=== PATIENT | female | born 1995 | race Caucasian/White ===

== ENCOUNTER 2019-04-19 16:24 | Emergency (ER) | payer SELFPAY ==
[2019-04-19] MEDS ORDERED: Acetaminophen TAB* 325 MG PO ONE (17:43)
--- NOTE | 2019-04-19 17:57 | ED ---
Respiratory - HPI Summary HPI Summary: 23 yr old female with the complaint of cough, URI congestion. Onset 4-5 days ago with runny nose and scratchy throat, and now deep coughing. She came today for two issues. She has coughing. The cough is heavy, and dry. She has nasal congestion. The patient had two day period that was a little early. No bleeding now. - History of Current Complaint Chief Complaint: UCGeneralIllness Stated Complaint: COUGH,LIGHT HEADED,CONGESTION Time Seen by Provider: 04/19/19 17:42 Pain Intensity: 0 - Allergy/Home Medications Allergies/Adverse Reactions: Allergies Allergy/AdvReac Type Severity Reaction Status Date / Time No Known Allergies Allergy Verified 04/19/19 17:40 Home Medications: Home Medications Cetirizine* [ZyrTEC 10 MG TAB*] 1 tab PO ONCE 04/19/19 [History Confirmed ] diphenhydrAMINE HCl [Benadryl Allergy] 1 tab PO ONCE 04/19/19 [History Confirmed 04/19/19] PMH/Surg Hx/FS Hx/Imm Hx - Surgical History Surgery Procedure, Year, and Place: 2017 Infectious Disease History: No Infectious Disease History: Denies: Traveled Outside the [place] in Last 30 Days - Family History Known Family History: Positive: None - Social History Alcohol Use: Occasionally Substance Use Type: Reports: None Smoking Status (MU): Heavy Every Day Tobacco Smoker Amount Used/How Often: 1/2 ppd Review of Systems Positive: Fatigue Positive: Cough All Other Systems Reviewed And Are Negative: Yes Physical Exam Triage Information Reviewed: Yes Vital Signs On Initial Exam: Initial Vitals Temp Pulse Resp BP Pulse Ox 100.6 F 113 14 117/70 96 04/19/19 17:31 04/19/19 17:31 04/19/19 17:31 04/19/19 17:31 04/19/19 17:31 Vital Signs Reviewed: Yes Appearance: Positive: Well-Appearing, No Pain Distress Skin: Positive: Warm, Skin Color Reflects Adequate Perfusion Head/Face: Positive: Normal Head/Face Inspection Eyes: Positive: EOMI, FARIHA ENT: Positive: Normal ENT inspection Neck: Positive: Nontender Respiratory/Lung Sounds: Positive: Clear to Auscultation, Breath Sounds Present Cardiovascular: Positive: RRR. Negative: Murmur Abdomen Description: Negative: Distended Musculoskeletal: Positive: Strength/ROM Intact Neurological: Positive: Sensory/Motor Intact, Alert, Oriented to Person Place, Time, CN Intact II-III Psychiatric: Positive: Normal Diagnostics - Vital Signs Vital Signs Temp Pulse Resp BP Pulse Ox 04/19/19 17:31 100.6 F 113 14 117/70 96 - Laboratory Lab Statement: Any lab studies that have been ordered have been reviewed, and results considered in the medical decision making process. - Radiology chest pa lat Radiology Interpretation Completed By: ED Physician - increased interstitial markings. Possible atypical pneumonia Disposition - Course Course Of Treatment: 23 yr old with possible atypical pneumonia. Rx Doxycycline 10 days. - Diagnoses Provider Diagnoses: Atypical pneumonia Discharge - Sign-Out/Discharge Documenting (check all that apply): Patient Departure All imaging exams completed and their final reports reviewed: No - Discharge Plan Condition: Good Disposition: HOME Prescriptions: DOXYcycline CAP(*) [DOXYcycline 100MG CAP(*)] 100 mg PO BID #20 cap Patient Education Materials: Pneumonia (ED) Referrals: No Primary Care Phys,NOPCP [Primary Care Provider] - [facility] – [place] [place] [facility] [Outside] - 3 Days - Billing Disposition and Condition Condition: GOOD Disposition: Home
[2019-04-19 18:55] VITALS: BP 104/65
== END 2019-04-19 18:52 | disposition home or self-care (01) ==
LOC: UCCORT 16:24
DX: J18.9 Pneumonia, unspecified organism (principal); F17.200 Nicotine dependence, unspecified, uncomplicated
CPT/HCPCS: 71046; 84702; 99202; A9270-GY; G0463